=== PATIENT | female | born 1995 | race Caucasian/White ===

== ENCOUNTER → 2016-10-26 | Outpatient (CLI) | payer OTHER ==
--- NOTE | 2016-10-26 10:34 | MR ---
MR brain without contrast HISTORY: Migraine, G 43.009 Multiplanar multisequence imaging through the brain No comparisons Corpus callosum, pituitary, cervical medullary junction are normal. Cerebellopontine angles show no m ass. Extensive inflammatory change present within the right maxillary sinus, mucosal disease present within the ethmoid air cells, frontal and left maxillary sinus. Brain signal is normal. No hydrocepha sabi or hemorrhage. There are normal vascular flow voids. The orbits show symmetric appearance. There is no restricted diffusion to suggest subacute ischemia. IMPRESSION: Sinus disease. No significant brain abnormality.
== END | disposition home or self-care (01) ==
LOC: RADMRIMAIN 08:53
PROVIDERS: ATTEND Psychiatry & Neurology Neurology
DX: G43.009 Migraine without aura, not intractable, without status migrainosus (principal)
CPT/HCPCS: 70551

== ENCOUNTER → 2020-04-07 | Outpatient (CLI) | payer OTHER ==
--- NOTE | 2020-04-08 08:41 | USB ---
Reason for exam: clinical finding. Physical Findings: Nurse did not find any significant physical abnormalities on exam. US Breast BILAT Right complete breast ultrasound includes all four quadrants, the retroareolar region and axilla. Finding demonstrates no cystic or solid lesion seen. Left complete breast ultrasound includes all four quadrants, the retroareolar region and axilla. Finding demonstrates no cystic or solid lesion seen. These results were verbally communicated with the patient and result sheet given to the patient on 04/07/20. ASSESSMENT: Negative, BI-RAD 1 RECOMMENDATION: Routine screening mammogram of both breasts at age 41. Manage patient on a clinical basis.
== END | disposition home or self-care (01) ==
LOC: RADUSWWP 14:46
PROVIDERS: ATTEND Family Medicine
DX: N63.13 Unspecified lump in the right breast, lower outer quadrant (principal); N63.23 Unspecified lump in the left breast, lower outer quadrant

== ENCOUNTER 2021-07-28 04:35 | Inpatient (IN) | payer OTHER, SELFPAY ==
[2021-07-28] MEDS ORDERED: CARBOPROST TROMETHAMINE 250 MCG/ML 1 ML AMP IM PRN (04:48)
[2021-07-28] MEDS ORDERED: TERBUTALINE 1 MG/ML VIAL SQ PRN (04:48)
[2021-07-28] MEDS ORDERED: METHYLERGONOVINE 0.2 MG/ML 1 ML AMP IM PRN (04:48)
[2021-07-28] MEDS ORDERED: OXYTOCIN 10 UNIT/ML 1 ML VIAL IM PRN (04:48)
[2021-07-28] MEDS ORDERED: LIDOCAINE 1% (PF) 10 MG/ML (30 ML SDV) SQ PRN (04:48)
[2021-07-28 05:01] VITALS: RESP 16
[2021-07-28 05:02] LABS: Basophils # (A) 0.1 k/uL (0-0.2); Basophils % (A) 1 %; Eosinophils % (A) 0 %; HCT 45.3 % (34.0-46.0); HGB 15.1 gm/dL (11.4-16.0); Lymphocytes % (A) 13 %; MCH 32.1 pg (25.0-35.0); MCHC 33.4 g/dL (31.0-37.0); MCV 96.1 fL (80.0-100.0); Mean Platelet Volume 11.6; Monocytes # (A) 0.5 k/uL (0-1.0); Monocytes % (A) 3 %; Neutrophils # (A) 13.1 k/uL (1.3-7.7); Neutrophils % (A) 83 %; Platelet Count 179 k/uL (150-450); RBC 4.72 m/uL (3.80-5.40); RDW 12.9 % (11.5-15.5); WBC 15.7 k/uL (3.8-10.6)
--- NOTE | 2021-07-28 05:32 | P.HPOB ---
History of Present Illness H&P Date: 07/28/21 Chief Complaint: No care, labor This patient is a 25-year-old 1 para 0 female with unknown date of confinement who presents per EMS with complaints of contractions. Patient's had no care. She states that she believes she had a positive t est sometime in October and again having pain sometime earlier this evening. Patient apparently had not told anybody in her family that she was except for the father the baby which is not involved. On admission patient is and precipitously delivers a viable male infant in the presence of the nursing staff.. Please see separate dictated note. Patient denies any past medical history. She denies any tobacco or drug use. It is unclear why she did not seek care. Review of Systems Genitourinary: Reports Menstruation: Reports amenorrhea Past Medical History Past Medical History: No Reported History Additional Past Medical History / Comment(s): hypoglycemia History of Any Multi-Drug Resistant Organisms: None Reported Past Surgical History: Tonsillectomy Past Psychological History: No Psychological Hx Reported Smoking Status: Never smoker Past Alcohol Use History: None Reported Past Drug Use History: Marijuana Medications and Allergies Home Medications Medication Instructions Recorded Confirmed Type No Known Home Medications 10/05/15 10/05/15 History Allergies Allergy/AdvReac Type Severity Reaction Status Date / Time No Known Allergies Allergy Verified 07/28/21 04:47 Exam Vital Signs Temp Pulse Resp BP Pulse Ox 07/28/21 04:53 97.2 F L 55 L 16 135/57 98 Intake and Output 07/27/21 07/27/21 07/28/21 14:59 22:59 06:59 Other: Weight 63.503 kg - OBG Physical Exam Abdomen: bowel sounds normal, no diffuse tenderness, no bruit present, no guardi ng noted, no hepatomegaly, no splenomegaly, no mass Vagina: normal moisture (First-degree laceration and bilateral periurethral lacerations), no discharge Uterus: enlarged Assessment and Plan (1) Post term Narrative/Plan: This is a 25-year-old 1 para 0 female most likely postdates based on examination of the baby and placenta had no care and precipitously delivered a viable male . Laceration repair is done and blood work is ordered. Patient states that she "needs to make some decisions" and therefore we will of course involve social sciences professor in regards to adoption and such. At this point we'll continue routine care. Current Visit: Yes Status: Acute Code(s): O48.0 - POST-TERM SNOMED Code(s): 70725178 (2) No care in current Current Visit: Yes Status: Acute Code(s): O09.30 - SUPRVSN OF PREG W INSUFFICIENT ANTENAT CARE, UNSP TRIMESTER SNOMED Code(s): 727021479 (3) Normal delivery Current Visit: Yes Status: Acute Code(s): O80 - ENCOUNTER FOR FULL-TERM UNCOMPLICATED DELIVERY SNOMED Code(s): 08774200
[2021-07-28] MEDS ORDERED: ZOLPIDEM 5 MG TAB PO PRN (05:33)
[2021-07-28] MEDS ORDERED: SIMETHICONE 80 MG CHEWABLE PO PRN (05:33)
[2021-07-28] MEDS ORDERED: diphenhydrAMINE 25 MG CAP PO PRN (05:33)
[2021-07-28] MEDS ORDERED: BENZOCAINE/MENTHOL SPRAY 1 GM/SPRAY AEROSOL TOPICAL PRN (05:33)
[2021-07-28] MEDS ORDERED: LANOLIN CREAM 5 GM TUBE TOPICAL PRN (05:33)
[2021-07-28] MEDS ORDERED: diphenhydrAMINE 50 MG CAP PO PRN (05:33)
[2021-07-28] MEDS ORDERED: diphenhydrAMINE 50 MG/ML 1 ML VIAL IVP PRN ×2 (05:33)
[2021-07-28] MEDS ORDERED: HYDROCORTISONE 2.5% RECTAL CREAM 30 GM TUBE RECTAL PRN (05:33)
[2021-07-28] MEDS ORDERED: bisacodyL 10 MG SUPP RECTAL PRN (05:35)
--- NOTE | 2021-07-28 05:40 | P.PROBDLV ---
Vaginal Delivery Note - . Vaginal Delivery Note: Normal spontaneous vaginal delivery of a viable male infant Apgars 8 and 9 delivery time is 0443 hrs. Please see dictated H&P for intimate details of this patient's admission. In brief summary this is a 25-year-old 1 para 0 female of unknown gestational age admitted to the hospital per EMS in active labor. Patient had no care and states she began having pain earlier this evening. Patient didn't know she was however did not seek care for tell her family. On admission patient was and delivered precipitously in the presence of nursing staff. This is a vigorous viable male Apgars are 8 and 9 delivery time is 0443 hours. Infant is taken to the nursery for pediatric evaluation however does appear to be grossly normal. Upon my arrival, patient was still in triage and placenta was still in situ. The placenta then sp ontaneously delivered intact. It did appear to be calcified and post dates consistent with a postdates . This was sent to pathology. Cord blood was obtained for unknown Rh status. Inspection of the perineum shows a first- degree posterior laceration which is repaired with 3-0 Vicryl after anesthetizing with lidocaine. Also bilateral periurethral lacerations which did not require repair. Uterus is firm and she has approximately 150 see blood loss. There are no complications. All counts are correct 3. Patient be taken to her birthing suite in satisfactory condition and protective services social worker contacted and routine laboratory work done.
[2021-07-28] MEDS ORDERED: Rhogam IMMUNE GLOBULIN 1,500 UNIT/1 ML IM ONE (05:41)
[2021-07-28] MEDS ORDERED: OXYTOCIN 30 UNITS/500 ML NS 30 UNIT in SALINE 1 500ML.BAG IV SCH (05:45)
[2021-07-28] MEDS: LACTATED RINGERS 1,000 ML IV SCH ×2 (06:00→06:02)
[2021-07-28] MEDS: IBUPROFEN 600 MG TAB PO PRN ×3 (09:15→23:50)
[2021-07-28] MEDS: SENNOSIDES-DOCUSATE SODIUM 1 EACH TAB PO SCH ×2 (09:17→19:53)
[2021-07-28 09:41] LABS: Hepatitis B Surface Antigen Nonreactive (Nonreactive)
[2021-07-28 09:43] LABS: Appearance,Urine Clear (Clear); Bilirubin,Urine Negative (Negative); Blood,Urine Large (Negative); Color,Urine Light Red; Glucose,Urine (UA) Negative (Negative); Ketones,Urine 1+ (Negative); Leukocyte Esterase,Urine Large (Negative); Mucus,Urine Rare /hpf; Nitrite,Urine Negative (Negative); Protein,Urine 1+ (Negative); RBC,Urine >182 /hpf (0-5); Specific Gravity,Urine 1.014 (1.001-1.035); Urobilinogen,Urine <2.0 mg/dL (<2.0); WBC,Urine 61 /hpf (0-5)
[2021-07-28 09:47] LABS: Amphetamine Screen,Urine Not Detected (NotDetected); Barbiturate Screen,Urine Not Detected (NotDetected); Benzodiazepines Screen,Urine Not Detected (NotDetected); Cocaine Screen,Urine Not Detected (NotDetected); Methadone Screen, Urine Not Detected (NotDetected); Opiate Screen,Urine Not Detected (NotDetected); Oxycodone Screen, Urine Not Detected (NotDetected); Phencyclidine Screen,Urine Not Detected (NotDetected); Tricyclic Antidepressant,Urine Not Detected (NotDetected); Urn Cannabinoid Scrn Detected (NotDetected)
[2021-07-28] MEDS: ACETAMINOPHEN TAB 325 MG TAB PO PRN ×2 (11:57→19:55)
[2021-07-28 21:37] LABS: HIV 2 AB Non-Reactive (Non-Reactive); HIV AB P24 Non-Reactive (Non-Reactive); HIV P24 AG Non-Reactive (Non-Reactive)
--- NOTE | 2021-07-29 06:02 | P.PNOBGVD ---
Subjective - Subjective Patient reports: Reports appetite normal, Reports voiding normally, Reports pain well controlled, Reports ambulating normally : doing well Objective - Latest Vital Signs Latest vital signs: Vital Signs Temp Pulse Resp BP Pulse Ox 07/29/21 04:00 97.9 F 50 L 16 100/65 07/29/21 00:00 97.9 F 49 L 16 113/77 07/28/21 20:00 97.7 F 58 L 16 120/73 07/28/21 16:00 98.2 F 47 L 16 98/53 07/28/21 12:00 98.3 F 46 L 16 115/68 07/28/21 08:00 98.2 F 44 L 16 127/71 99 07/28/21 07:42 98.2 F 44 L 16 127/71 07/28/21 07:00 43 L 16 118/57 07/28/21 06:30 50 L 16 121/73 Intake and Output 07/28/21 07/28/21 07/29/21 14:59 22:59 06:59 Other: # Voids 1 2 1 - Exam Lungs: bilateral: normal Chest: Normal S1, Normal S2 Extremities: Present: normal Abdomen: Present: normal appearance, soft Uterus: Present: normal, firm - Labs Labs: Abnormal Lab Results - Last 24 Hours (Table) 07/28/21 07/28/21 Range/Units 05:19 09:17 Urine Protein 1+ H (Negative) Urine Ketones 1+ H (Negative) Urine Blood Large H (Negative) Ur Leukocyte Esterase Large H (Negative) Urine RBC >182 H (0-5) /hpf Urine WBC 61 H (0-5) /hpf Urine Mucus Rare H (None) /hpf U Marijuana (THC) Screen Detected H (NotDetected) Rubella IgG Antibody 48.10 H (0.00-10.00) IU/mL Assessment and Plan Assessment: day #1. Patient is resting without complaints. Vital signs are stable she's afebrile. Uterus is firm nontender she's having normal lochia. Patient's blood type taken back Rh negative with a negative antibody screen therefore RhoGAM was given if indicated. Patient's toxicology screen also came back positive for marijuana. Patient's in contact with social work in regards to possible adoption however she is quite uncertain as to what she is going to do. Plan today is to continue routine care. We'll discharge home tomorrow. (1) Post term Current Visit: Yes Status: Acute Code(s): O48.0 - POST-TERM SNOMED Code(s): 04093870 (2) No care in current Current Visit: Yes Status: Acute Code(s): O09.30 - SUPRVSN OF PREG W INSUFFICIENT ANTENAT CARE, UNSP TRIMESTER SNOMED Code(s): 926671930 (3) Normal delivery Current Visit: Yes Status: Acute Code(s): O80 - ENCOUNTER FOR FULL-TERM UNCOMPLICATED DELIVERY SNOMED Code(s): 63270818
[2021-07-29] MEDS: IBUPROFEN 600 MG TAB PO PRN (07:35)
[2021-07-29] MEDS: SENNOSIDES-DOCUSATE SODIUM 1 EACH TAB PO SCH (07:35)
--- NOTE | 2021-07-29 07:37 | P.PN ---
Progress Note - Text Progress Note Date: 07/29/21 Patient has known for the nursing staff that she's discussed with her grandma and has decided that she is going to keep the baby therefore she would like to go home today to begin preparation for childcare. Patient is felt to be stable for discharge home from a medical standpoint follow up with me in 6 weeks.
--- NOTE | 2021-07-29 07:38 | P.DS ---
Providers Date of admission: 07/28/21 04:40 Expected date of discharge: 07/29/21 Attending physician: Adolfo Melendez Primary care physician: Stated None - Discharge Diagnosis(es) (1) Post term Current Visit: Yes Status: Acute (2) No care in current Current Visit: Yes Status: Acute (3) Normal delivery Current Visit: Yes Status: Acute Hospital Course: Please see dictated H&P for intimate details of this patient's admission. In brief summary this is a 25-year-old 1 para 0 female who presented by EMS in active labor and no care. Patient quickly went on to have a vaginal delivery viable male infant. Dictated delivery note. day #1 patient decided to go home to prepare for this child therefore was discharged home follow up with me in 6 weeks Procedures: Normal spontaneous vaginal delivery Patient Condition at Discharge: Good Plan - Discharge Summary Discharge Rx Participant: No New Discharge Prescriptions: New Ibuprofen [Motrin] 600 mg PO Q6HR PRN #30 tab PRN Reason: Pain Discharge Medication List Ibuprofen [Motrin] 600 mg PO Q6HR PRN #30 tab 07/29/21 [Rx] Follow up Appointment(s)/Referral(s): Adolfo Melendez MD [STAFF PHYSICIAN] - 6 Weeks Patient Instructions/Handouts: Vaginal Delivery (DC) Activity/Diet/Wound Care/Special Instructions: No intercourse or anything per vagina for 6 weeks. Please call if any fever, chills, excessive vaginal bleeding, and/or abdominal pain. Discharge Disposition: HOME SELF-CARE
[2021-07-29 07:54] LABS: Basophils # (A) 0.1 k/uL (0-0.2); Basophils % (A) 1 %; Eosinophils # (A) 0.1 k/uL (0-0.7); Eosinophils % (A) 1 %; Lymphocytes # (A) 2.7 k/uL (1.0-4.8); Lymphocytes % (A) 30 %; MCH 31.7 pg (25.0-35.0); MCHC 32.6 g/dL (31.0-37.0); MCV 97.2 fL (80.0-100.0); Mean Platelet Volume 10.8; Monocytes # (A) 0.4 k/uL (0-1.0); Monocytes % (A) 4 %; Neutrophils # (A) 5.8 k/uL (1.3-7.7); Neutrophils % (A) 64 %; Platelet Count 135 k/uL (150-450); RBC 4.42 m/uL (3.80-5.40); RDW 13.2 % (11.5-15.5)
[2021-07-29 08:35] VITALS: BP 127/80; PULSE 55; TEMP 97.8
== END 2021-07-29 12:10 | disposition home or self-care (01) | DRG 806 ==
LOC: FBPOP 04:35 → 4FBP 04:40
PROVIDERS: ADMIT Obstetrics & Gynecology; ATTEND Obstetrics & Gynecology
PROC: 10E0XZZ Delivery of Products of Conception, External Approach (ICD-10-PCS; principal; 2021-07-28)
PROC: 0HQ9XZZ Repair Perineum Skin, External Approach (ICD-10-PCS; 2021-07-28)
DX: O48.0 Post-term pregnancy (principal); O99.324 Drug use complicating childbirth; Z37.0 Single live birth; O62.3 Precipitate labor; F12.90 Cannabis use, unspecified, uncomplicated; O26.893 Other specified pregnancy related conditions, third trimester; O71.82 Other specified trauma to perineum and vulva; Z67.41 Type O blood, Rh negative; Z3A.40 40 weeks gestation of pregnancy
CPT/HCPCS: 80306; 81001; 85025; 85461; 86762; 86780; 86850; 86900; 86901; 87340; 87390; 88307; 99213